=== PATIENT | male | born 1980 | race Caucasian/White ===

== ENCOUNTER 2021-04-16 12:48 | Inpatient (IN) ==
[2021-04-16] MEDS ORDERED: Ibuprofen 600 MG TABLET PO ONE (13:50)
[2021-04-16 14:36] LABS: Basophils % 0.3 %; Eosinophils # 0.1 K/mcL (0.0-0.6); Eosinophils % 1.9 %; Hematocrit 49.9 % (37.5-50.1); Hemoglobin 16.5 g/dL (12.9-16.9); Immature Granulocytes % 0.1 % (0-4); Lymphocytes % 28.7 %; Mean Corpuscular HGB Conc 33.1 g/dL (31.6-35.5); Mean Corpuscular Hemoglobin 30.9 pg (28.0-33.3); Mean Corpuscular Volume 93.4 fL (83.0-100.0); Mean Platelet Volume 11.5 fL (9.4-12.4); Monocytes # 0.4 K/mcL (0.0-1.3); Monocytes % 5.4 %; Neutrophils # 4.4 K/mcL (1.6-8.9); Platelet Count 254 K/mcL (140-400); Red Blood Count 5.34 M/mcL (4.19-5.50); Red Cell Distribution Width 13.1 % (11.5-14.5); Segmented Neutrophils % 63.6 %; White Blood Count 6.9 K/mcL (4.3-11.1)
[2021-04-16 14:50] LABS: Bilirubin,Urine Negative (Negative); Blood,Urine Negative (Negative); Clarity,Urine Clear (Clear); Color,Urine Yellow (Yellow); Glucose,Urine (UA) Normal (Normal); Ketones,Urine Negative (Negative); Leukocyte Esterase,Urine Negative (Negative); Nitrite,Urine Negative (Negative); Protein,Urine Trace mg/dL (Neg-Trace); Specific Gravity,Urine 1.028 (1.010-1.025); Urobilinogen,Urine Normal (Normal)
[2021-04-16 14:54] LABS: Acetaminophen < 10 mcg/mL (10-20); Albumin 4.3 g/dL (3.5-5.7); Albumin/Globulin Ratio 1.3 (1.1-2.2); BUN/Creatinine Ratio 11 (6-26); Bilirubin,Direct 0.1 mg/dL (0.0-0.2); Bilirubin,Indirect 0.2 mg/dL (0.0-1.0); Bilirubin,Total 0.3 mg/dL (0.3-1.0); Blood Urea Nitrogen 13 mg/dL (6-20); Calcium 9.8 mg/dL (8.6-10.3); Carbon Dioxide 31 mEq/L (23-29); Chloride 99 mEq/L (98-107); Chol/HDL Ratio 3.8 (0-4.9); Cholesterol 149 mg/dL (< 200); Ethanol < 10 mg/dL (Less than 10); Globulin 3.3 g/dL (2.4-3.5); Glucose 101 mg/dL (70-105); HDL Cholesterol 39 mg/dL (40-59); LDL Cholesterol,Calculated 94 mg/dL (< 100); Osmolality,Calculated 284 (280-300); Potassium 4.6 mEq/L (3.5-5.1); Salicylate < 2.5 mg/dL (15.0-30.0); Sodium 137 mEq/L (136-145); Total Protein 7.6 g/dL (6.4-8.9); Triglycerides 80 mg/dL (< 150); eGFR For African Americans > 60 (> 60); eGFR For Non-African Americans > 60 (> 60)
[2021-04-16 15:06] LABS: Amphetamine Screen,Urine Negative ng/mL (Cutoff=1000); Barbiturate Screen,Urine Negative ng/mL (Cutoff=200); Benzodiazepines Screen,Urine Negative ng/mL (Cutoff=200); Cannabinoid Screen,Urine Positive ng/mL (Cutoff = 50); Cocaine Screen,Urine Negative ng/mL (Cutoff= 300); Opiate Screen,Urine Negative ng/mL (Cutoff=300); Phencyclidine Screen,Urine Negative ng/mL (Cutoff=25)
[2021-04-16 15:07] LABS: Thyroid Stimulating Hormone 0.86 mcIU/mL (0.340-5.600)
[2021-04-16 15:15] LABS: Estimated Average Glucose 111 mg/dl; Hemoglobin A1C 5.5 %
[2021-04-16 20:50] LABS: Influenza A PCR Negative (Negative); Influenza B PCR Negative (Negative); Resp. Syncytial Virus PCR Negative (Negative)
[2021-04-16 20:51] LABS: SARS-CoV-2 by PCR (In House) Negative (Negative)
[2021-04-16] MEDS ORDERED: Haloperidol Lactate 5 MG/ML VIAL IM PRN (22:34)
[2021-04-16] MEDS ORDERED: *HR* LORazepam 1 MG TABLET PO PRN (22:34)
[2021-04-16] MEDS ORDERED: *HR* LORazepam 2 MG/ML VIAL IM PRN (22:34)
[2021-04-16] MEDS ORDERED: traZODone 50 MG TABLET PO PRN (22:34)
[2021-04-16] MEDS ORDERED: haloperidoL 5 MG TABLET PO PRN (22:34)
[2021-04-17] MEDS: Acetaminophen 325 MG TABLET PO PRN ×3 (00:32→22:54)
[2021-04-17] MEDS: hydrOXYzine pamoate 25 MG CAPSULE PO PRN ×2 (00:32→20:59)
[2021-04-17] MEDS ORDERED: MOM Conc 10 ML UD.LIQ PO PRN (10:43)
[2021-04-17] MEDS ORDERED: Mag Hydrox/Al Hydrox/Simeth 30 ML UDC PO PRN (10:43)
[2021-04-17] MEDS: BuPROPion XL (24 HR) 150 MG TABLET PO SCH (12:05)
[2021-04-17] MEDS: chlorproMAZINE 25 MG TABLET PO SCH (20:59)
[2021-04-18] MEDS: BuPROPion XL (24 HR) 150 MG TABLET PO SCH (10:08)
[2021-04-18] MEDS: Acetaminophen 325 MG TABLET PO PRN (17:30)
[2021-04-18] MEDS: chlorproMAZINE 25 MG TABLET PO SCH (21:27)
[2021-04-19] MEDS: BuPROPion XL (24 HR) 150 MG TABLET PO SCH (09:57)
[2021-04-19 10:29] VITALS: BP 95/66; PULSE 83; TEMP 97.9; O2SAT 97
[2021-04-19] MEDS: Acetaminophen 325 MG TABLET PO PRN (10:49)
== END 2021-04-19 11:25 | DRG 885 ==
LOC: 1ANU 12:48 → EMEROOARM 12:48 → 1ANU 23:55
PROVIDERS: ADMIT Psychiatry & Neurology Psychiatry; ATTEND Psychiatry & Neurology Psychiatry